=== PATIENT | female | born 1960 | race Caucasian/White ===

== ENCOUNTER 2023-08-15 09:43 | Emergency (ER) | payer MEDICARE, SELFPAY ==
[2023-08-15 10:10] VITALS: BP 137/81; PULSE 87; RESP 16; O2SAT 94; BMI 23.6
--- NOTE | 2023-08-15 10:22 | CTR_ITS ---
PROCEDURE INFORMATION: Exam: CT Head Without Contrast Exam date and time: 08/15/2023 10:34 AM Age: 62 years old Clinical indication: Injury or trauma; Fall; Blunt trauma (contusions or hematomas); Additional info: Fall, head injury TECHNIQUE: Imaging protocol: Computed tomography of the head without contrast. Radiation optimization: All CT scans at this facility use at least one of these dose optimization techniques: automated exposure control; mA and/or kV adjustment per patient size (includes targeted exams where dose is matched to clinical indication); or iterative reconstruction. COMPARISON: CT sinus wo con* [id number] 04/13/2017 10:18 AM RADIATION DOSE METRICS: Total DLP (mGy-cm): 1010.2 FINDINGS: Brain: Normal. No hemorrhage. Unremarkable white matter. No mass effect. Cerebral ventricles: No ventriculomegaly. Paranasal sinuses: Visualized sinuses are unremarkable. No fluid levels. Mastoid air cells: Visualized mastoid air cells are well aerated. Bones: Unremarkable. No acute fracture. Soft tissues: Unremarkable. Vasculature: Calcified plaque is present within the carotid siphons. CT/CT head wo con* [id number] IMPRESSION: No acute findings.Calcified plaque is present within the carotid siphons.
--- NOTE | 2023-08-15 10:28 | ED_ITS ---
HPI - Fall General: Chief Complaint: Fall Stated Complaint: Fall with cut on head Time Seen by Provider: 08/15/23 10:03 History of Present Illness: 62-year-old female who tripped and fell this morning. She struck her head on the corner of a wall. Has a laceration on the top of her head. He says it took a while for the bleeding to stop. No loss of consciousness. No altered mental status. No focal motor deficits. No nausea or vomiting. She does not know when her last tetanus was. No other injuries. No chest pain. No shortness of breath. No abdominal pain. Review of Systems Narrative: Constitutional symptoms: Negative except as documented in HPI. Skin symptoms: Negative except as documented in HPI. Eye symptoms: Negative except as documented in HPI. ENMT symptoms: Negative except as documented in HPI. Respiratory symptoms: Negative except as documented in HPI. Cardiovascular symptoms: Negative except as documented in HPI. Gastrointestinal symptoms: Negative except as documented in HPI. Genitourinary symptoms: Negative except as documented in HPI. Musculoskeletal symptoms: Negative except as documented in HPI. Neurologic symptoms: Negative except as documented in HPI. Psychiatric symptoms: Negative except as documented in HPI. Endocrine symptoms: Negative except as documented in HPI. Physical Exam Narrative: EXAM NARRATIVE: General: Alert, no acute distress. Skin: Warm, dry. Head: Normocephalic, there is a 2 cm laceration in the right coronal frontal scalp.. Neck: Supple, trachea midline. Eye: Extraocular movements are intact. Ears, nose, mouth and throat: mucosa moist. Cardiovascular: Regular, Normal peripheral perfusion. Respiratory: Lungs are clear to auscultation, respirations are non-labored, breath sounds are equal, Symmetrical chest wall expansion. Gastrointestinal: Soft, Nontender, Non distended, Normal bowel sounds. Musculoskeletal: Normal ROM, no deformity. Neurological: Alert and oriented, No focal neurological deficit observed. Psychiatric: Cooperative, appropriate mood & affect. Course Vital Signs: Vital signs: Vital Signs Pulse Rate 87 08/15/23 10:10 Respiratory Rate 16 08/15/23 10:10 Blood Pressure 137/81 08/15/23 10:10 Pulse Oximetry 94 08/15/23 10:10 Oxygen Delivery Me thod Room Air 08/15/23 10:10 MDM - Fall Medical Decision Making CT head: No acute intracranial process. no intracranial hemorrhage, no evidence of infarct. no evidence of acute fracture.This was reviewed and interpreted by myself the ER physician. Laceration repair procedure: Time: 10:45 AM Confirmed patient, procedure, side, and site. Time out performed prior to procedure. Verbal consent was obtained by patient and/or responsible green party. Indication: Laceration Location: Right coronal scalp Length: 2 cm Description: Linear, subcutaneous Anesthesia: 7 mL 1% lidocaine with epinephrine Area prepared by sterile field with Betadine. # 4 [place] were utilized, simple, interrupted technique. Post procedure examination: Circulation, motor, sensory intact. Patient tolerated the procedure well. No complications, bleeding. Total time: 15 min. Pt advised to keep the area clean and dry, wash twice per day with antibacterial soap and water. Return to the ED or PCP in 7 days for suture removal. Assessment and plan: Scalp laceration Head injury ? Life-saving tetanus was administered - Discharged home - Discussed plan with patient. Answered any questions. - Evaluation and treatment of this problem were appropriate in the emergency setting. XR interpretation done by ED provider, pending radiology final review Discharge Plan Discharge Patient Disposition: Home Clinical Impression: Scalp laceration Qualifiers: Encounter type: initial encounter Qualified Code(s): S01.01XA - Laceration wi thout foreign body of scalp, initial encounter Head injury Qualifiers: Encounter type: initial encounter Qualified Code(s): S09.90XA - Unspecified injury of head, initial encounter Condition: Stable Discharge Orders: Discharge ED (Routine); Ordered 08/15/23 Ordered By: Joyce Lo Discharge Diet: Usual diet Discharge Activity: Limit activity as instructed Patient Instructions: Staple Care (ED) Activity Restrictions/Additional Instructions: Wash your scalp once or twice daily with shampoo or soap. No prolonged submersion. Avoid pools, lakes, Creeks or ponds. Staple removal with your PCP or at the emergency room in 7 days on 08/22/2023. Thank you for choosing [facility] for your healthcare needs today. Please realize this is an emergency room and that we are providing you with a medical screening exam and this may not be complete and all inclusive of all the testing and or work up that you may need to determine your ailment or severity of your illness. You have been screened and evaluated and felt safe for discharge. Health conditions do change or evolve sometimes and as such it is important that you follow up with your Primary Doctor to be re checked, 3-5 days is a general good time frame for follow up. You are always welcome to return to the ED for re assessment if your symptoms are worsening or you have new concerns Coding Level of Care Code ED Electroformer for Marisol Matute
[2023-08-15] MEDS: tetanus-diphtheria tox (adult) 0.5 mL SYRINGE IM (11:02)
[2023-08-15] MEDS: lidocaine-epi 1% 20 mL INJ INJECTION (11:10)
[2023-08-15 11:11] VITALS: BP 137/81; PULSE 87; RESP 16; O2SAT 94
== END 2023-08-15 11:12 | disposition home or self-care (01) ==
PROVIDERS: Emergency Provider Emergency Medicine
DX: S01.01XA Laceration without foreign body of scalp, initial encounter (principal); W01.198A Fall on same level from slipping, tripping and stumbling with subsequent striking against other object, initial encounter; Z23 Encounter for immunization
CPT/HCPCS: 12001; 70450; 90471; 90714; 99284